=== PATIENT | female | born 1940 | race Caucasian/White ===

== ENCOUNTER 2017-08-18 08:09 | Day surgery (SDC) | payer MEDICARE, MEDICAID ==
[2017-08-18] MEDS ORDERED: PROPOFOL 10 MG/ML VIAL IV ONE (08:10)
[2017-08-18] MEDS ORDERED: LIDOCAINE 2% MDV (20MG/ML) 20ML VIAL IV ONE (08:10)
--- NOTE | 2017-08-18 13:30 | Operative Note ---
DATE OF SURGERY: 08/18/2017 OPERATION: COLONOSCOPY to the cecum with cold biopsy forceps polypectomy x1. INDICATION: History of colon polyps. Last examination was more than [address] Jacobson in [place], [place]. ANESTHESIA: Intravenous sedation was administered by the department of anesthesiology and included Diprivan titrated to effect. PROCEDURE: Following informed consent from this alert individual including a discussion of the risks and benefits of the procedure and an opportunity for the patient to ask questions, the patient was in the left lateral decubitus position. A digital rectal examination was performed. No abnormalities were noted. Following this, the Olympus [id number] video colonoscope was inserted into the rectum without resistance. The rectal mucosa had a normal appearance with normal folds and distensibility. The colonoscope was advanced up through the colon to the level of the cecum without much difficulty. Throughout the bowel the mucosa appeared normal, the folds were normal, and the bowel was fairly well distensible. The cecum was defined by noting the appendiceal orifice and ileocecal valve. Retroflexion in the cecum was endoscopically normal. The colon preparation was good. From the base of the cecum, the colonoscope was then withdrawn. In the mid descending colon there was a diminutive 3-4 mm sessile polyp noted which was removed with cold biopsy forceps. No other changes were appreciated until the rectum was reached. Attempts at retroflexion within the rectum were unsuccessful due to a narrowed rectal vault. Slow withdrawal through the rectum and anus, however, demonstrated internal and external hemorrhoids. The endoscope was removed. The patient tolerated the procedure well and was returned to the recovery area in stable condition. IMPRESSION: 1. A 3-4 mm sessile polyp in the descending colon removed with biopsy forceps. 2. Internal and external hemorrhoids. RECOMMENDATIONS: The patient was advised she should receive a copy of her pathology report at home in the next 2-3 weeks. If not, she was asked to call my office to review the results of testing today. Further recommendations may be forthcoming pending those results. Followup will also be with Davidson Estrada DO. As always, thank you for allowing me to participate in the care of your patient. CC: Davidson Estrada DO [email or web address]
== END 2017-08-18 10:40 | disposition home or self-care (01) ==
LOC: HOP 08:09
PROVIDERS: ATTEND Internal Medicine Gastroenterology
DX: Z12.11 Encounter for screening for malignant neoplasm of colon (principal); Z86.010 Personal history of colon polyps; D12.4 Benign neoplasm of descending colon; K64.8 Other hemorrhoids; K64.4 Residual hemorrhoidal skin tags; E78.00 Pure hypercholesterolemia, unspecified; E11.9 Type 2 diabetes mellitus without complications; Z79.84 Long term (current) use of oral hypoglycemic drugs